=== PATIENT | female | born 1960 | race Caucasian/White ===

== ENCOUNTER 2020-11-12 13:21 | Observation (INO) ==
[2020-11-12] MEDS ORDERED: Naloxone 0.4 MG/ML INJ IVP PRN (18:08)
[2020-11-12] MEDS ORDERED: *HR* Promethazine 25 MG/ML VIAL IM ONE (18:26)
[2020-11-12] MEDS: Ketorolac 30 MG/ML VIAL IVP PRN (20:01)
[2020-11-13 01:48] LABS: Basophils % 0.4 %; Eosinophils # 0.2 K/mcL (0.0-0.6); Eosinophils % 1.6 %; Hematocrit 41.8 % (35.3-44.9); Hemoglobin 13.8 g/dL (11.5-15.4); Immature Granulocytes % 0.4 % (0-4); Lymphocytes # 4.8 K/mcL (0.6-4.6); Lymphocytes % 43.2 %; Mean Corpuscular Hemoglobin 28.6 pg (28.0-33.3); Mean Corpuscular Volume 86.5 fL (83.0-100.0); Mean Platelet Volume 8.2 fL (9.4-12.4); Monocytes # 0.7 K/mcL (0.0-1.3); Monocytes % 6.5 %; Neutrophils # 5.3 K/mcL (1.6-8.9); Platelet Count 395 K/mcL (140-400); Red Blood Count 4.83 M/mcL (3.82-4.97); Red Cell Distribution Width 13.3 % (11.5-14.5); Segmented Neutrophils % 47.9 %
[2020-11-13 02:06] LABS: BUN/Creatinine Ratio 28 (6-26); Blood Urea Nitrogen 28 mg/dL (6-20); Calcium 9.7 mg/dL (8.6-10.3); Carbon Dioxide 27 mEq/L (23-29); Chloride 101 mEq/L (98-107); Chol/HDL Ratio 4.2 (0-4.9); Cholesterol 215 mg/dL (< 200); Glucose 102 mg/dL (70-105); HDL Cholesterol 51 mg/dL (40-59); LDL Cholesterol,Calculated 133 mg/dL (< 100); Osmolality,Calculated 292 (280-300); Potassium 3.3 mEq/L (3.5-5.1); Sodium 138 mEq/L (136-145); Triglycerides 156 mg/dL (< 150); Troponin I < 0.03 ng/mL (< 0.04); eGFR For African Americans > 60 (> 60); eGFR For Non-African Americans 57 (> 60)
[2020-11-13 03:10] LABS: Estimated Average Glucose 123 mg/dl; Hemoglobin A1C 5.9 %
[2020-11-13] MEDS ORDERED: Regadenoson 0.4 MG/5 ML SYRINGE IVP ONE (07:46)
[2020-11-13] MEDS: Acetaminophen 325 MG TABLET PO PRN (14:11)
[2020-11-13] MEDS: Ketorolac 30 MG/ML VIAL IVP PRN (20:55)
[2020-11-14 05:34] LABS: Hematocrit 41.3 % (35.3-44.9); Hemoglobin 13.2 g/dL (11.5-15.4); Mean Corpuscular Hemoglobin 27.9 pg (28.0-33.3); Mean Corpuscular Volume 87.3 fL (83.0-100.0); Mean Platelet Volume 8.1 fL (9.4-12.4); Platelet Count 395 K/mcL (140-400); Red Blood Count 4.73 M/mcL (3.82-4.97); Red Cell Distribution Width 13.2 % (11.5-14.5); White Blood Count 10.5 K/mcL (4.3-11.1)
[2020-11-14 05:58] LABS: BUN/Creatinine Ratio 28 (6-26); Blood Urea Nitrogen 21 mg/dL (6-20); Calcium 9.6 mg/dL (8.6-10.3); Carbon Dioxide 28 mEq/L (23-29); Chloride 101 mEq/L (98-107); Glucose 85 mg/dL (70-105); Osmolality,Calculated 284 (280-300); Potassium 3.5 mEq/L (3.5-5.1); Sodium 136 mEq/L (136-145); eGFR For African Americans > 60 (> 60); eGFR For Non-African Americans > 60 (> 60)
[2020-11-14] MEDS: Acetaminophen 325 MG TABLET PO PRN (09:20)
[2020-11-14 13:49] VITALS: BP 133/76
[2020-11-15] MEDS ORDERED: Aspirin Enteric Coated 81 MG Tablet PO SCH (09:00)
== END 2020-11-14 14:10 | disposition home or self-care (01) ==
LOC: 3BNU → SUATTDRO 17:12
PROVIDERS: ADMIT Internal Medicine; ATTEND Internal Medicine